=== PATIENT | female | born 1955 | race Caucasian/White ===

== ENCOUNTER 2021-05-08 16:46 | Inpatient (IN) | payer MEDICARE ==
[~2021-05-08] VITALS: Ht 172.7 cm; Wt 112.0 kg
--- NOTE | 2021-05-08 17:00 | NUR ---
WELDER FABRICATOR NOTE- PT IS A 66 YEAR OLD FEMALE BROUGHT IN BY AMBULANCE STAFF ON A HOLD 5150 GD. PT WAS ASSESSED IN [facility] FOR ARM PAIN AND FOUND TO BE PSYCHOTIC, DELUSIONAL AND UNABLE TO CARE FOR SELF. PT KEPT AT HOSPITAL ON HOLD WHILE A CARDIAC WORK UP WAS PERFORMED. PT HAD NSTEMI/ELEVATED TROPONIN. PT MEDICALLY CLEARED AND PLACED ON 5250 OF TODAY. ON FACE TO FACE ASSESSMENT, PT IS QUITE PSYCHOTIC, DELUSIONAL AND BIZARRE IN SPEECH. PT STATES THAT HER LEG IS 'AMPUTATED AND THERE ARE INNER TUBES IN MY STOMACH." SKIN ASSESSMENT COMPLETED. PTS SKIN INTACT AND ALL HER LIMBS ARE WELL. NO SCARS, NO OPEN AREAS. ONE ECCHYMOTIC SPOT TO LUE/POSTERIOR ASPECT. PHOTO TAKEN. PT IS 5'8" AND 247 POUNDS. HER ACCUCHECK BS- 111. VS FOLLOWS- 146/85, HR- 83, RR- 20, T- 98.6, SATURATION 96% RA. MRSA SWAB TAKEN AND CALLED TO LAB. PT IS ALERT ORIENTED TO SELF ONLY, CALM , DIRECTABLE THOUGH A BIT HYPERVERBAL AND GUARDED. PERSECUTORY DELUSIONS PERSIS "THEY ARE GOING TO CUT ME... THEY ARE REMOVING MY ARM." PT DOESN'T ELABORATE ON WHO IS DOING THIS. PMHX LIMITED SHE IS PSYCHOTIC AND A POOR HISTORIAN. VACCINES FLATLY REFUSED. ORIENTED TO UNIT AND SAFETY DISCUSSED. PT DENIES SI HI AH VH THOUGH PSYCHOSIS MAKES THIS SUSPECT. ASSIST AND PROVIDE FOR PT CARE. DR MARSH NOTIFIED OF ADMISSION. ORDERS RECEIVED. COMPLIED
[2021-05-08] MEDS ORDERED: MAG HYDROX/AL HYDROX/SIMETH 30 ML UDC PO PRN (17:30)
[2021-05-08] MEDS ORDERED: MAGNESIUM HYDROXIDE 30 ML UDC PO PRN (17:30)
[2021-05-08] MEDS ORDERED: BLOOD SUGAR DIAGNOSTIC 1 EACH STRIP IN ONE (17:30)
[2021-05-08] MEDS ORDERED: LORAZEPAM 0.5 MG TABLET PO PRN (17:30)
[2021-05-08 20:00] VITALS: BP 132/80
[2021-05-08] MEDS ORDERED: LISI-768 PO (23:30)
[2021-05-08] MEDS ORDERED: AMLO-213 PO (23:30)
[2021-05-08] MEDS ORDERED: RISP1TAB97 PO (23:31)
[2021-05-09 07:05] LABS: ALBUMIN 3.5 g/dL (3.4-5.0); BILIRUBIN,TOTAL 0.3 mg/dL (0.2-1.0); CALCIUM, SERUM 10.5 mg/dL (8.5-10.1); CREATININE 0.6 mg/dL (0.6-1.3); POTASSIUM 4.4 mmol/L (3.5-5.1); TOTAL PROTEIN, SERUM 6.1 g/dL (6.4-8.2)
[2021-05-09 07:30] LABS: THYROID STIMULATING HORMONE 1.825 uIU/mL (0.358-3.74)
[2021-05-09 08:00] VITALS: BP 143/92
--- NOTE | 2021-05-09 14:45 | NUR ---
Point of Contact: SW called Ms Villarreal ([phone]) and left a voicemail stating that the SW would like to discuss the pts treatment.
--- NOTE | 2021-05-09 15:07 | NUR ---
Initial Discharge Plan: Pt is currently homeless and states that she is going to need placement. SW will work with the pt and the pts MD regarding appropriate discharge planning. SW will form a safe and proper discharge.
[2021-05-09] MEDS ORDERED: risperiDONE 1 MG TABLET PO SCH (15:15)
[2021-05-09 16:00] VITALS: BP 125/78
[2021-05-09 19:41] VITALS: BP 129/89
[2021-05-09 19:58] VITALS: BP 129/89
[2021-05-09] MEDS: BENZTROPINE MESYLATE (1 MG) 1 MG TABLET PO SCH (21:14)
[2021-05-09] MEDS: risperiDONE 1 MG TABLET PO SCH (21:14)
[2021-05-10] MEDS: ACETAMINOPHEN 325 MG TABLET PO PRN ×2 (06:40→14:42)
--- NOTE | 2021-05-10 06:42 | NUR ---
RN NOTE: PAIN PATIENT C/O LOWER BACK PAIN 02/06,REQUESTING FOR PAIN MEDICINE. PRN TYLENOL 650 MG PO ADMINISTERED. PATIENT SLEPT WELL AT NIGHT. NO BEHAVIOR EPISODES NOTED, REDIRECTABLE. WILL CONTINUE TO MONITOR.
[2021-05-10 07:03] LABS: ALBUMIN 3.5 g/dL (3.4-5.0); BILIRUBIN,TOTAL 0.2 mg/dL (0.2-1.0); CALCIUM, SERUM 10.2 mg/dL (8.5-10.1); CREATININE 0.6 mg/dL (0.6-1.3); POTASSIUM 4.3 mmol/L (3.5-5.1); TOTAL PROTEIN, SERUM 6.2 g/dL (6.4-8.2)
[2021-05-10 08:00] VITALS: BP 147/94
[2021-05-10] MEDS: AMLODIPINE BESYLATE 10 MG TABLET PO SCH (08:36)
[2021-05-10] MEDS: risperiDONE 1 MG TABLET PO SCH ×3 (08:36→21:07)
[2021-05-10] MEDS: LISINOPRIL (5MG) 5 MG TABLET PO SCH (08:37)
[2021-05-10] MEDS: BENZTROPINE MESYLATE (1 MG) 1 MG TABLET PO SCH ×2 (08:37→21:06)
--- NOTE | 2021-05-10 14:43 | NUR ---
GPS RN NOTES PATIENT C/O HEADACHE AND REQUESTING PRN TYLENOL. PRN TYLENOL ADMINISTERED. WILL REASSESS.
[2021-05-10 16:00] VITALS: BP 116/67
--- NOTE | 2021-05-10 19:54 | NUR ---
RN OPENING NOTE PATIENT IN BED, SLEEPING, EASILY AWAKENED. PATIENT ABLE TO MAKE NEEDS KNOWN. A/O X 2. BREATHING EVEN AND UNLABORED, TOLERATING ROOM AIR. PATIENT HAS WHEELCHAIR AT BED SIDE. PATIENT IS COOPERATIVE AT THIS TIME, LABILE MOOD. NO COMPLAINS OF DISCOMFORT AT THIS TIME. SAFETY MEASURES IN PLACE: BED IN LOCKED AND LOWEST POSITION, SIDE RAILS UP, AND ENCOURAGED PATIENT TO VERBALIZE ANY CONCERNS OR IF IN NEED. WILL MONITOR PATIENT CLOSELY.
[2021-05-10 20:00] VITALS: BP 123/77
[2021-05-10 20:25] VITALS: BP 123/71
--- NOTE | 2021-05-11 06:47 | NUR ---
RN CLOSING NOTE PATIENT IN BED EYES CLOSED, EASILY AROUSED. NOT IN ANY APPARENT DISTRESS. NO SIGNIFICANT CHANGES IN CONDITION DURING THE SHIFT. PATIENT COMPLAINING OF ARM AND LEG PAIN, OFFERED TYLENOL FOR THE PAIN, REFUSED PAIN MEDICINE. ALL NEEDS MET AND ATTENDED, SAFETY MEASURES MAINTAINED. WILL ENDORSE TO ONCOMING SHIFT FOR NEFTALY.
[2021-05-11 08:00] VITALS: BP 140/81
[2021-05-11] MEDS: BENZTROPINE MESYLATE (1 MG) 1 MG TABLET PO SCH ×2 (10:04→21:55)
[2021-05-11] MEDS: AMLODIPINE BESYLATE 10 MG TABLET PO SCH (10:04)
[2021-05-11] MEDS: LISINOPRIL (5MG) 5 MG TABLET PO SCH (10:05)
[2021-05-11] MEDS: risperiDONE 1 MG TABLET PO SCH ×3 (11:07→21:56)
[2021-05-11 16:00] VITALS: BP 108/71
--- NOTE | 2021-05-11 18:00 | NUR ---
med compliant,mostly keeps to self.
[2021-05-11 20:07] VITALS: BP 122/69
[2021-05-11] MEDS: ACETAMINOPHEN 325 MG TABLET PO PRN (21:58)
[2021-05-12 08:00] VITALS: BP 114/73
[2021-05-12] MEDS: risperiDONE 1 MG TABLET PO SCH ×3 (08:35→21:23)
[2021-05-12] MEDS: BENZTROPINE MESYLATE (1 MG) 1 MG TABLET PO SCH ×2 (08:35→21:23)
[2021-05-12] MEDS: AMLODIPINE BESYLATE 10 MG TABLET PO SCH (08:35)
[2021-05-12] MEDS: LISINOPRIL (5MG) 5 MG TABLET PO SCH (08:35)
[2021-05-12] MEDS: ACETAMINOPHEN 325 MG TABLET PO PRN ×2 (12:03→21:24)
[2021-05-12] MEDS: CHOLECALCIFEROL 1,000 UNIT TABLET (VIT D3) PO SCH (13:02)
[2021-05-12 16:00] VITALS: BP 115/66
[2021-05-12 20:18] VITALS: BP 121/67
[2021-05-12] MEDS: TEMAZEPAM 7.5 MG CAPSULE PO PRN (21:24)
--- NOTE | 2021-05-12 21:25 | NUR ---
Pt c/o generalized body pain 02/06. Tylenol 650 mg po prn given as ordered. Pt c/o insomnia. Least restrictive measures ineffective. Restoril 7.5 mg po prn given as ordered. Will continue to monitor.
--- NOTE | 2021-05-12 22:27 | NUR ---
Post 1 hr tylenol effective. IA 0/10. Post 1 hr Restoril effective. Post 1 hr asleep in bed easy to arouse. Will continue to monitor. Frequent visual check done for safety.
[2021-05-13] MEDS: ACETAMINOPHEN 325 MG TABLET PO PRN (05:40)
--- NOTE | 2021-05-13 05:40 | NUR ---
Pt c/o general body pain 02/06. Tylenol 650 mg po prn given as ordered. Will continue to monitor.
--- NOTE | 2021-05-13 06:42 | NUR ---
Post 1 hr tylenol effective. W[place] 0/10. Will continue to monitor.
[2021-05-13 08:00] VITALS: BP 143/82
[2021-05-13] MEDS: AMLODIPINE BESYLATE 10 MG TABLET PO SCH (08:22)
[2021-05-13] MEDS: LISINOPRIL (5MG) 5 MG TABLET PO SCH (08:22)
[2021-05-13] MEDS: risperiDONE 1 MG TABLET PO SCH ×5 (08:22→21:40)
[2021-05-13] MEDS: BENZTROPINE MESYLATE (1 MG) 1 MG TABLET PO SCH ×2 (08:23→21:40)
[2021-05-13] MEDS: CHOLECALCIFEROL 1,000 UNIT TABLET (VIT D3) PO SCH (08:24)
--- NOTE | 2021-05-13 12:41 | NUR ---
RN NOTE RISPERDONE WAS GIVEN ALREADY AT 1203. TIME ADJUSTMENT BY DR. MARSH WAS MADE AT 1222. RISPERIDONE AT 1300 NOT ADMINISTERED.
[2021-05-13 16:00] VITALS: BP 124/67
[2021-05-13 20:00] VITALS: BP 124/80
--- NOTE | 2021-05-13 20:00 | NUR ---
GPS RN NOTE: PATIENT IN BED, A/O X1-2. BLUNTED AFFECT, DISORGANIZED, PASSIVE, WITHDRAWN, PARANOID, COOPERATIVE. PT. DENIES SI, DENIES PAIN AT THIS TIME. RESPIRATION EVEN AND UNLABORED WITH EQUAL RISE AND FALL OF THE CHEST, ON ROOM AIR. WILL CONTINUE TO MONITOR Q15 MIN FOR SAFETY, MOOD AND BEHAVIOR.
[2021-05-14 08:00] VITALS: BP 109/56
[2021-05-14] MEDS: AMLODIPINE BESYLATE 10 MG TABLET PO SCH (08:28)
[2021-05-14] MEDS: LISINOPRIL (5MG) 5 MG TABLET PO SCH (08:28)
[2021-05-14] MEDS: CHOLECALCIFEROL 1,000 UNIT TABLET (VIT D3) PO SCH (08:33)
[2021-05-14] MEDS: risperiDONE 1 MG TABLET PO SCH ×4 (08:33→21:35)
[2021-05-14] MEDS: BENZTROPINE MESYLATE (1 MG) 1 MG TABLET PO SCH ×2 (08:34→21:35)
--- NOTE | 2021-05-14 09:10 | NUR ---
gps steel plate printer: notes clean catch urine collected and sent to lab.
--- NOTE | 2021-05-14 09:42 | NUR ---
SNF Contact: Alonso ([phone]) from [facility] contacted the and stated that the pt was accepted to their facility.
--- NOTE | 2021-05-14 09:42 | NUR ---
SNF Referral: MARY faxed a referral to [facility] with attn to Sharlene to the fax number: [phone].
[2021-05-14 10:07] LABS: BILIRUBIN,URINE NEGATIVE (NEGATIVE); COLOR,URINE YELLOW (YELLOW); LEUKOCYTE ESTERASE ,URINE SMALL (NEGATIVE); NITRITE, URINE NEGATIVE (NEGATIVE); PROTEIN,URINE NEGATIVE (NEGATIVE); UGLUCOSE NEGATIVE (NEGATIVE); UROBILINOGEN,URINE 0.2 EU/dL (0.2)
[2021-05-14 10:16] LABS: BACTERIA,URINE Rare /HPF (None Seen); RBC,URINE NONE SEEN /HPF (0-2); SQUAMOUS EPITHELIAL CELL,UR Rare /HPF (None Seen)
[2021-05-14 16:00] VITALS: BP 115/80
[2021-05-14 20:00] VITALS: BP 122/72
[2021-05-14] MEDS: ACETAMINOPHEN 325 MG TABLET PO PRN (21:36)
--- NOTE | 2021-05-14 21:37 | NUR ---
Pt c/o generalized body pain 02/06. Tylenol 650 mg po prn given as ordered. Will continue to monitor.
--- NOTE | 2021-05-14 22:40 | NUR ---
Post 1 hr Tylenol effective. NV 0/10. Will continue to monitor. Frequent visual check done for safety.
[2021-05-15 08:00] VITALS: BP 130/97
[2021-05-15] MEDS: CHOLECALCIFEROL 1,000 UNIT TABLET (VIT D3) PO SCH (09:13)
[2021-05-15] MEDS: BENZTROPINE MESYLATE (1 MG) 1 MG TABLET PO SCH ×2 (09:13→21:50)
[2021-05-15] MEDS: risperiDONE 1 MG TABLET PO SCH ×4 (09:14→22:10)
[2021-05-15] MEDS: LISINOPRIL (5MG) 5 MG TABLET PO SCH (09:14)
[2021-05-15] MEDS: AMLODIPINE BESYLATE 10 MG TABLET PO SCH (09:15)
[2021-05-15] MEDS: ACETAMINOPHEN 325 MG TABLET PO PRN (09:26)
--- NOTE | 2021-05-15 09:47 | NUR ---
GIVEN TYLENOL 650 MG PO FOR LT EYE PAIN AND MOUTH PAIN.
[2021-05-15 16:00] VITALS: BP 111/64
[2021-05-15] MEDS: CEPHALEXIN MONOHYDRATE 500 MG CAPSULE PO SCH (17:12)
[2021-05-15 19:54] VITALS: BP 114/68
[2021-05-16] MEDS: TEMAZEPAM 7.5 MG CAPSULE PO PRN (00:54)
[2021-05-16 08:00] VITALS: BP 112/75
[2021-05-16] MEDS: CEPHALEXIN MONOHYDRATE 500 MG CAPSULE PO SCH ×2 (08:46→17:13)
[2021-05-16] MEDS: CHOLECALCIFEROL 1,000 UNIT TABLET (VIT D3) PO SCH (08:47)
[2021-05-16] MEDS: risperiDONE 1 MG TABLET PO SCH ×4 (08:47→21:31)
[2021-05-16] MEDS: BENZTROPINE MESYLATE (1 MG) 1 MG TABLET PO SCH ×2 (08:47→21:31)
[2021-05-16] MEDS: AMLODIPINE BESYLATE 10 MG TABLET PO SCH (08:47)
[2021-05-16] MEDS: LISINOPRIL (5MG) 5 MG TABLET PO SCH (08:48)
[2021-05-16 16:00] VITALS: BP 115/68
[2021-05-16 20:24] VITALS: BP 121/69
--- NOTE | 2021-05-16 23:12 | NUR ---
GPS RN NOTE COVID ANTIGEN TEST ORDERED. SENT NASOPHARYNGEAL SWAB SPECIMEN TO THE LAB.
--- NOTE | 2021-05-17 06:55 | NUR ---
GPS RN CLOSING PATIENT IN THE ROOM SLEEPING IN BED A/OX X2 ,GUARDED. TOLERATING ROOM AIR WITH NO SOB. DENIES PAIN OR DISCOMFORT AT THIS TIME. NO ACUTE DISTRESS NOTED. COMPLIANT WITH MEDICATIONS. ALL NEEDS ATTENDED AND ANTICIPATED. SAFETY MEASURES IN PLACE: BED IN LOWEST LOCKED POSITION, SIDE RAILS UPX2, EDUCATED PATIENT TO USE CALL LIGHT. WILL ENDORSE CARE PLAN FOR MONITORING OF SAFETY AND BEHAVIOR TO MORNING RN.
[2021-05-17 08:00] VITALS: BP 144/87
[2021-05-17] MEDS: CEPHALEXIN MONOHYDRATE 500 MG CAPSULE PO SCH (08:25)
[2021-05-17] MEDS: risperiDONE 1 MG TABLET PO SCH ×2 (08:25→12:16)
[2021-05-17] MEDS: BENZTROPINE MESYLATE (1 MG) 1 MG TABLET PO SCH (08:25)
[2021-05-17] MEDS: CHOLECALCIFEROL 1,000 UNIT TABLET (VIT D3) PO SCH (08:25)
[2021-05-17 08:26] VITALS: BP 144/87
[2021-05-17] MEDS: LISINOPRIL (5MG) 5 MG TABLET PO SCH (08:26)
[2021-05-17] MEDS: AMLODIPINE BESYLATE 10 MG TABLET PO SCH (08:26)
--- NOTE | 2021-05-17 09:09 | NUR ---
Discharge Note: Pt will be discharged to [facility] located at [address] [place] [id number]; ([phone]) to 4B. Pt will be transported via [facility] at 2:30PM. There is no one to notify regarding the pts discharge. Upon discharge, the pt appears to be in a dysphoric mood and presented with a congruent affect. Pt appears to be alert and oriented x3 (time, place, self). Pt denies both suicidal and homicidal ideation as well as auditory and visual hallucinations. Pt appears to be ambulatory with an unsteady gait. Pt appears to be well groomed and appropriately dressed. SW provided patient with the 2019 [facility] Program list. SW provided patient with a copy of the [facility] homeless directory which provides information on locations for hot meals, sack lunches, food pantries, and showers. MARY provided an additional list of mental health clinics: [facility] [address] [place] [address] ([phone]); [facility] [address] [place] [address] ([phone]); a list of medical clinics; [facility] [address] [facility] [address], [place]. [place], ; [facility] [address] [facility] MARY Provided [facility] [address] [place] [address]: ([phone]). Patient was provided with a brief substance abuse intervention and referred to the following substance abuse programs: [facility] Self-helpline ([phone]); [facility] [address] [place] [address] ([phone]); [facility] [address] [facility] [address] ([phone]); [facility] ([phone]); [facility] ([phone]); [facility] ([phone]); [facility] ([phone]). Pt will continue to be under the care of psychiatrist, Dr. Portillo, located at [address] [address]; . Pt will be under the care of jailor, Dr. Houston, located at [address] [place] [address]; . The homeless waiver, choice of vendor form and multidisciplinary exit care form were done, printed, signed, and given to the patient.
--- NOTE | 2021-05-17 15:20 | NUR ---
RN-DISCHARGE NOTES DR. MARSH GAVE DISCHARGE ORDERS AND YVONNE ELIZONDO AWARE OF THE DISCHARGE WITH ORDERS. PATIENT DID NOT VERBALIZE SI/HI,DENIES VISUAL/AUDITORY HALLUCINATIONS AT THE TIME OF DISCHARGE.PATIENT WAS DISCHARGE TO [facility] .REPORT WAS GIVEN TO MINISTERIO ( FACILITY CHARGE NURSE). PATIENT LEFT THE UNIT IN STABLE CONDITION A/O X3 ,SPEEDER WORKER BY AMBULANCE VIA GURNEY WITH TWO STAFF ASSIST. PATIENT LEFT WITH ALL HER BELONGINGS. MASK WAS PROVIDED.NO FAMILY TO NOTIFY ON THE DISCHARGE.
== END 2021-05-17 15:19 | DRG 885 ==
LOC: GPS 16:46
PROVIDERS: ADMIT Psychiatry & Neurology Psychosomatic Medicine; ATTEND Student in an Organized Health Care Education/Training Program
DX: F25.0 Schizoaffective disorder, bipolar type (principal); N39.0 Urinary tract infection, site not specified; F29 Unspecified psychosis not due to a substance or known physiological condition; F41.9 Anxiety disorder, unspecified; I10 Essential (primary) hypertension; E83.52 Hypercalcemia; B96.89 Other specified bacterial agents as the cause of diseases classified elsewhere; Z20.822 Contact with and (suspected) exposure to COVID-19; I25.2 Old myocardial infarction
CPT/HCPCS: 36415; 80053-TC; 80061-TC; 81001; 82306; 82962-TC; 83970; 84443-TC; 84484-TC; 87081-TC; 87086-TC